=== PATIENT | female | born 1935 | race Caucasian/White ===

== ENCOUNTER 2016-11-17 16:10 | Inpatient (IN) | payer MEDICARE, OTHER ==
[~2016-11-17 16:10] MED LIST: ADULT LOW DOSE81 MG PO; ALEVE220 M1 PO; ALEVE220 MG; ALPRAZOLAM0.5 MG PO; ANTIVERT25 MG PO; ATENOLOL/CHLORT1 TA; ATENOLOL/CHLORT1 TA PO; ENABLEX7.5 MG PO; MUCINEX D TABL1 EACH PO; NEXIUM40 MG PO; POLYETHYLENE G255 GM PO; PROTONIX20 MG; VICODIN 5/500 T1 TAB PO; XANAX0.5 M1 PO; XANAX0.5 MG; [UNRECOGNIZED DRUG - OTHER]
[2016-11-17 17:25] LABS: BASO % 0.1 % (0-2); EOS % 0.5 % (0-7); EOSINOPHIL ABSOLUTE COUNT 0.1 tho/cmm (0.0-0.7); HCT-HEMATOCRIT 42.1 % (34.0-49.0); HGB-HEMOGLOBIN 14.1 gm/dl (12.0-15.5); IMMATURE GRANULOCYTES ABSOLUTE 0.05 tho/cmm (0-0.03); IMMATURE GRANULOCYTES PERCENT 0.3 % (0-0.3); LYMPH % 6.1 % (20-45); LYMPH ABSOLUTE COUNT 1.1 tho/cmm (0.8-4.5); MCH (MEAN CORPUSCULAR HGB) 29.8 pg (28.0-32.0); MCHC MEAN CORPUSCULAR HGB CONC 33.5 % (32.0-36.0); MONO % 10.2 % (0-12); MONOCYTE ABSOLUTE COUNT 1.8 tho/cmm (0.0-1.2); NEUTROPHIL ABSOLUTE COUNT 14.6 tho/cmm (1.6-8.0); NEUTROPHIL-AUTOMATED 14.6 tho/cmm (1.6-8.0); NEUTROPHILS % 82.8 % (40-80); PLATELET COUNT 340 tho/cmm (150-450); RED BLOOD COUNT 4.73 mil/cmm (4.00-5.20); RED CELL DISTRIBUTION WIDTH 13.1 % (12.4-16.4); WHITE BLOOD COUNT 17.6 tho/cmm (4.0-10.0)
[2016-11-17 17:39] LABS: ALB/GLOB RATIO 0.5 (0.8-2.0); ALBUMIN 2.8 g/dl (3.5-5.0); ALKALINE PHOSPHATASE 117 U/L (33-138); ALT/SGPT 28 U/L (12-78); ANION GAP 13 mmol/L (0-20); AST/SGOT 31 U/L (10-40); BILIRUBIN,TOTAL 0.8 mg/dl (0-1.5); BLOOD UREA NITROGEN 15 mg/dl (6-24); CARBON DIOXIDE-VENOUS 28 mmol/L (22-32); CHLORIDE 98 mmol/l (96-110); CREATININE 0.93 mg/dl (0.50-1.10); GLUCOSE 180 mg/dL (70-110); LIPASE 78 U/L (73-393); MAGNESIUM 1.9 mg/dl (1.8-2.6); POTASSIUM 4.5 mmol/L (3.7-5.1); SODIUM 134 mmol/L (135-145); eGFR VALUE FOR BLACK 67 mL/Min
[2016-11-17 18:02] LABS: ESR-ERYTHROCYTE SED RATE 11 mm/hr (0-30)
[2016-11-17 18:08] LABS: URINE BILIRUBIN NEGATIVE (NEG); URINE BLOOD MODERATE (NEG); URINE GLUCOSE (UA) NEGATIVE (NEG); URINE KETONE SMALL (NEG); URINE LEUKOCYTE ESTERASE POSITIVE (NEG); URINE NITRITE POSITIVE (NEG); URINE PROTEIN MODERATE (NEG); URINE SPECIFIC GRAVITY 1.025 (1.003-1.030)
[2016-11-17 18:09] LABS: URINE APPEARANCE CLOUDY; URINE COLOR YELLOW
[2016-11-17 18:11] LABS: URINE BACTERIA 3+; URINE RBC 0-1 /[HPF] (0-5)
[2016-11-17] MEDS ORDERED: TRENTAL PO (18:36)
[2016-11-17] MEDS ORDERED: NEURONTIN100 M1 PO (18:36)
[2016-11-17] MEDS ORDERED: MUCINEX DM ER1 EAC1 PO (19:08)
[2016-11-17] MEDS ORDERED: ASPIRIN EC325 M1 PO (19:08)
[2016-11-17] MEDS ORDERED: FISH OIL 11000 MG/CA PO (19:08)
[2016-11-17] MEDS ORDERED: TENORMIN50 M1 PO (19:09)
[2016-11-17] MEDS ORDERED: LIPITOR10 M1 PO (19:09)
[2016-11-17] MEDS ORDERED: MIDODRINE HCL5 M1 PO (19:10)
[2016-11-17] MEDS ORDERED: LEVOTHYROXINE75 MC3 PO (19:10)
[2016-11-17] MEDS ORDERED: DETROL LA4 M1 PO (19:11)
[2016-11-17 20:33] LABS: TSH-THYROID STIMULATING HORM. 1.03 uIU/ml (0.40-3.80)
[2016-11-18 03:42] LABS: BASO % 0.1 % (0-2); EOS % 3.5 % (0-7); EOSINOPHIL ABSOLUTE COUNT 0.5 tho/cmm (0.0-0.7); HCT-HEMATOCRIT 37.8 % (34.0-49.0); HGB-HEMOGLOBIN 12.5 gm/dl (12.0-15.5); IMMATURE GRANULOCYTES ABSOLUTE 0.06 tho/cmm (0-0.03); IMMATURE GRANULOCYTES PERCENT 0.4 % (0-0.3); LYMPH % 14.2 % (20-45); LYMPH ABSOLUTE COUNT 1.9 tho/cmm (0.8-4.5); MCH (MEAN CORPUSCULAR HGB) 29.6 pg (28.0-32.0); MCHC MEAN CORPUSCULAR HGB CONC 33.1 % (32.0-36.0); MCV (MEAN CELL VOLUME) 89.4 fl (82.0-96.0); MONO % 8.3 % (0-12); MONOCYTE ABSOLUTE COUNT 1.1 tho/cmm (0.0-1.2); NEUTROPHILS % 73.5 % (40-80); PLATELET COUNT 282 tho/cmm (150-450); RED BLOOD COUNT 4.23 mil/cmm (4.00-5.20); RED CELL DISTRIBUTION WIDTH 13.2 % (12.4-16.4); WHITE BLOOD COUNT 13.6 tho/cmm (4.0-10.0)
[2016-11-18 03:54] LABS: ANION GAP 12 mmol/L (0-20); BLOOD UREA NITROGEN 12 mg/dl (6-24); CALCIUM 7.9 mg/dl (8.5-10.5); CARBON DIOXIDE-VENOUS 26 mmol/L (22-32); CHLORIDE 100 mmol/l (96-110); CREATININE 0.85 mg/dl (0.50-1.10); GLUCOSE 187 mg/dL (70-110); MAGNESIUM 2.1 mg/dl (1.8-2.6); POTASSIUM 3.8 mmol/L (3.7-5.1); SODIUM 134 mmol/L (135-145); eGFR VALUE FOR BLACK 75 mL/Min
[2016-11-18 14:14] LABS: PHOSPHOROUS 2.6 mg/dl (2.5-4.9)
[2016-11-18 15:43] LABS: FOLATE (FOLIC ACID) 22.3 ng/ml (3.20-20.00)
[2016-11-19 07:04] LABS: BASO % 0.1 % (0-2); EOS % 2.2 % (0-7); EOSINOPHIL ABSOLUTE COUNT 0.3 tho/cmm (0.0-0.7); HCT-HEMATOCRIT 36.1 % (34.0-49.0); HGB-HEMOGLOBIN 11.9 gm/dl (12.0-15.5); IMMATURE GRANULOCYTES ABSOLUTE 0.04 tho/cmm (0-0.03); IMMATURE GRANULOCYTES PERCENT 0.3 % (0-0.3); LYMPH % 9.8 % (20-45); LYMPH ABSOLUTE COUNT 1.4 tho/cmm (0.8-4.5); MCH (MEAN CORPUSCULAR HGB) 29.3 pg (28.0-32.0); MCV (MEAN CELL VOLUME) 88.9 fl (82.0-96.0); MEAN PLATELET VOLUME 9.9 cmc (9.4-12.4); MONO % 6.7 % (0-12); MONOCYTE ABSOLUTE COUNT 0.9 tho/cmm (0.0-1.2); NEUTROPHIL ABSOLUTE COUNT 11.4 tho/cmm (1.6-8.0); NEUTROPHIL-AUTOMATED 11.4 tho/cmm (1.6-8.0); NEUTROPHILS % 80.9 % (40-80); PLATELET COUNT 321 tho/cmm (150-450); RED BLOOD COUNT 4.06 mil/cmm (4.00-5.20); WHITE BLOOD COUNT 14.1 tho/cmm (4.0-10.0)
[2016-11-19 07:15] LABS: ANION GAP 11 mmol/L (0-20); BLOOD UREA NITROGEN 9 mg/dl (6-24); CALCIUM 8.2 mg/dl (8.5-10.5); CARBON DIOXIDE-VENOUS 27 mmol/L (22-32); CHLORIDE 99 mmol/l (96-110); GLUCOSE 119 mg/dL (70-110); POTASSIUM 3.6 mmol/L (3.7-5.1); SODIUM 133 mmol/L (135-145); eGFR VALUE FOR BLACK >90 mL/Min
[2016-11-20 04:45] LABS: HGB-HEMOGLOBIN 10.9 gm/dl (12.0-15.5); PLATELET COUNT 340 tho/cmm (150-450)
[2016-11-21 09:19] LABS: BASO % 0.2 % (0-2); EOS % 2.4 % (0-7); EOSINOPHIL ABSOLUTE COUNT 0.3 tho/cmm (0.0-0.7); HCT-HEMATOCRIT 38.4 % (34.0-49.0); HGB-HEMOGLOBIN 12.7 gm/dl (12.0-15.5); LYMPH % 11.9 % (20-45); LYMPH ABSOLUTE COUNT 1.3 tho/cmm (0.8-4.5); MCHC MEAN CORPUSCULAR HGB CONC 33.1 % (32.0-36.0); MCV (MEAN CELL VOLUME) 87.7 fl (82.0-96.0); MONO % 8.1 % (0-12); MONOCYTE ABSOLUTE COUNT 0.9 tho/cmm (0.0-1.2); NEUTROPHIL ABSOLUTE COUNT 8.4 tho/cmm (1.6-8.0); NEUTROPHIL-AUTOMATED 8.4 tho/cmm (1.6-8.0); NEUTROPHILS % 77.4 % (40-80); PLATELET COUNT 451 tho/cmm (150-450); RED BLOOD COUNT 4.38 mil/cmm (4.00-5.20); RED CELL DISTRIBUTION WIDTH 12.4 % (12.4-16.4); WHITE BLOOD COUNT 10.8 tho/cmm (4.0-10.0)
[2016-11-21 09:27] LABS: ANION GAP 15 mmol/L (0-20); BLOOD UREA NITROGEN 5 mg/dl (6-24); C-REACTIVE PROTEIN 6.8 mg/dl (0-0.9); CALCIUM 8.6 mg/dl (8.5-10.5); CARBON DIOXIDE-VENOUS 27 mmol/L (22-32); CHLORIDE 97 mmol/l (96-110); CREATININE 0.58 mg/dl (0.50-1.10); GLUCOSE 112 mg/dL (70-110); POTASSIUM 3.6 mmol/L (3.7-5.1); SODIUM 135 mmol/L (135-145); eGFR VALUE FOR BLACK >90 mL/Min
[2016-11-22 06:11] LABS: HGB-HEMOGLOBIN 13.1 gm/dl (12.0-15.5); PLATELET COUNT 396 tho/cmm (150-450)
[2016-11-22 06:51] LABS: PROCALCITONIN 0.05 ng/ml (0.05-0.09)
[2016-11-22] MEDS ORDERED: KEFLEX500 M4 PO (12:10)
[2016-11-22] MEDS ORDERED: CYMBALTA30 M1 PO (12:12)
== END 2016-11-22 14:30 | DRG 74 ==
LOC: EDMED 16:10 → EMR2 19:38 → 5EB 20:53
PROVIDERS: Emergency Medicine; Family Medicine; Internal Medicine; Internal Medicine Cardiovascular Disease; Psychiatry & Neurology Neurology; ADMIT Hospitalist
DX: G62.9 Polyneuropathy, unspecified (principal); I69.351 Hemiplegia and hemiparesis following cerebral infarction affecting right dominant side; N39.0 Urinary tract infection, site not specified; L03.116 Cellulitis of left lower limb; R53.1 Weakness; E03.9 Hypothyroidism, unspecified; E78.5 Hyperlipidemia, unspecified; I73.9 Peripheral vascular disease, unspecified; H35.30 Unspecified macular degeneration; I10 Essential (primary) hypertension; R60.0 Localized edema; B96.1 Klebsiella pneumoniae [K. pneumoniae] as the cause of diseases classified elsewhere; Z66 Do not resuscitate; Z87.891 Personal history of nicotine dependence; Z88.5 Allergy status to narcotic agent; Z88.0 Allergy status to penicillin; Z79.82 Long term (current) use of aspirin; Z79.899 Other long term (current) drug therapy
CPT/HCPCS: C8929; J1650; J2270; J2405; J2543; J7030; J7050; P9612